=== PATIENT | female | born 1970 | race Caucasian/White ===

== ENCOUNTER 2019-01-09 09:49 | Emergency (ER) | payer BC, OTHER ==
[2019-01-09] MEDS: ASPIRIN 325 MG TAB PO (11:23)
[2019-01-09] MEDS: NITROGLYCERIN (SL) 0.4 MG TAB SL (11:23)
[2019-01-09 11:30] LABS: ADD MAN DIFF? NO
[2019-01-09 11:35] LABS: WHITE BLOOD COUNT 7.1 10^3/ul (4.8-10.8)
[2019-01-09 11:35] LABS: BASOPHIL # 0.1 10^3/ul (0.0-0.1); BASOPHILS % 0.8 % (0.0-2.0); EOSINOPHILS # 0.5 10^3/ul (0.0-0.5); HEMOGLOBIN 9.5 g/dl (12.0-16.0); LYMPHOCYTES # 2.1 10^3/ul (0.8-2.9); LYMPHOCYTES % 28.9 % (15.0-51.0); MEAN CORPUSCULAR HEMOGLOBIN 20.6 pg (29.0-33.0); MEAN CORPUSCULAR HGB CONC 29.7 g/dl (32.0-37.0); MEAN CORPUSCULAR VOLUME 69.3 fl (82.0-101.0); MEAN PLATELET VOLUME 10.2 fl (7.4-10.4); MONOCYTE # 0.5 10^3/ul (0.3-0.9); MONOCYTES % 7.3 % (0.0-11.0); NEUTROPHILS % 55.7 % (39.0-77.0); PLATELET COUNT 346 10^3/UL (140-415); RED BLOOD COUNT 4.62 10^6/ul (4.20-5.40); RED CELL DISTRIBUTION WIDTH 17.3 % (11.5-14.5)
[2019-01-09 11:54] LABS: PROTIME 13.3 Sec (11.9-14.9)
[2019-01-09 11:55] LABS: PARTIAL THROMBOPLASTIN TIME 26.4 Sec (23.0-35.0)
[2019-01-09 12:05] LABS: ALANINE AMINOTRANSFERASE 22 IU/L (13-69); ALBUMIN 4.2 g/dl (3.3-4.9); ALBUMIN/GLOBULIN RATIO 1.31; ALKALINE PHOSPHATASE 71 IU/L (42-121); ANION GAP 8 (5-13); ASPARTATE AMINO TRANSFERASE 20 IU/L (15-46); BILIRUBIN,INDIRECT 0.1 mg/dl (0-1.1); BILIRUBIN,TOTAL 0.1 mg/dl (0.2-1.3); BLOOD UREA NITROGEN 14 mg/dl (7-20); CARBON DIOXIDE 28 mmol/L (21-31); CHLORIDE 104 mmol/L (97-110); CREATINE KINASE 121 IU/L (23-200); CREATININE 0.58 mg/dl (0.44-1.00); Estimated GFR > 60 mL/min (>60); POTASSIUM 4.1 mmol/L (3.5-5.1); SODIUM 140 mmol/L (135-144); TOTAL PROTEIN 7.4 g/dl (6.1-8.1)
[2019-01-09 12:15] LABS: TROPONIN-I < 0.012 ng/ml (0.000-0.120)
[2019-01-09 12:27] LABS: CALCIUM 9.5 mg/dl (8.4-10.2); GLUCOSE 186 mg/dl (70-220)
[2019-01-09 12:35] LABS: B-TYPE NATRIURETIC PEPTIDE 35 PG/ML (0-125); CK INDEX 0.7; CK-MB 0.83 ng/ml (0.0-2.4)
[2019-01-09] MEDS: SOD CHLORIDE 0.9% 100 ML (13:35)
[2019-01-09] MEDS: IOHEXOL 350MG/ML 50 ML BTL ×2 (13:35→13:36)
== END 2019-01-09 14:31 | disposition home or self-care (01) ==
LOC: E/R 09:49
DX: R09.1 Pleurisy (principal); E11.9 Type 2 diabetes mellitus without complications; Z79.84 Long term (current) use of oral hypoglycemic drugs
CPT/HCPCS: 71045; 71275; 80053; 82550; 82553; 83880; 84484; 85025; 85378; 85610; 85730; 93005; 99285-25